=== PATIENT | male | born 1965 | race Caucasian/White ===

== ENCOUNTER 2017-05-25 22:50 | Inpatient (IN) | payer SELFPAY ==
[2017-05-25] MEDS ORDERED: CARDIZEM IV ONE (23:23)
[2017-05-25] MEDS ORDERED: NACL 0.9% 1000 ML 1,000 ML IV ONE (23:25)
--- NOTE | 2017-05-25 23:29 | Emergency Department Report ---
ED Chest Pain HPI - General Stated Complaint: CP Time Seen by Provider: 05/25/17 23:05 - History of Present Illness Initial Comments: 51 yo male who comes in today due to chest pain and palpations. He states that it was much worse in the waiting room but somewhat better in the ED. Denies any past medical history, drug use, new diet pills, or other complaints. Heart rate on ekg is 145. Heart rate in the ED room 103. Patient states that he feels like his heart racing. Complaint: chest pain -: This evening Onset: other (This evening ) Pain Location: substernal Pain Radiation: none Severity: moderate Severity scale (0 -10): 7 Quality: pressure Consistency: constant Improves With: nothing Worsens With: nothing Context: other (none ) Treatments Prior to Arrival: none Aspirin use within the Past 7 Days: (0) No - Related Data On Oral Contraceptives: No Allergies Allergy/AdvReac Type Severity Reaction Status Date / Time No Known Allergies Allergy Verified 05/25/17 23:28 Heart Score - HEART Score History: Moderately suspicious EKG: Non-specific Age: 45-65 Risk factors: No known risk factors Troponin: < normal limit HEART Score: 3 ED Review of Systems ROS: Stated complaint: CP Other details as noted in HPI Constitutional: denies: chills, fever Eyes: denies: eye pain, eye discharge, vision change ENT: denies: ear pain, throat pain Respiratory: shortness of breath Cardiovascular: as per HPI, chest pain, palpitations Endocrine: no symptoms reported Gastrointestinal: denies: abdominal pain, nausea, diarrhea Genitourinary: denies: urgency, dysuria Musculoskeletal: denies: back pain, joint swelling, arthralgia Skin: denies: rash, lesions Neurological: denies: headache, weakness, paresthesias Psychiatric: denies: anxiety, depression ED Past Medical Hx - Past Medical History Previous Medical History?: No ED Physical Exam - General General appearance: anxious - Head Head exam: Present: atraumatic, normocephalic - Eye Eye exam: Present: normal appearance - ENT ENT exam: Present: mucous membranes moist - Neck Neck exam: Present: normal inspection - Respiratory Respiratory exam: Present: normal lung sounds bilaterally. Absent: respiratory distress - Cardiovascular Cardiovascular Exam: Present: tachycardia - GI/Abdominal GI/Abdominal exam: Present: soft, normal bowel sounds - Extremities Exam Extremities exam: Present: normal inspection - Back Exam Back exam: Present: normal inspection - Neurological Exam Neurological exam: Present: alert, oriented X3 - Psychiatric Psychiatric exam: Present: anxious - Skin Skin exam: Present: warm, dry, intact, normal color. Absent: rash ED Course Vital Signs 05/25/17 05/25/17 05/25/17 23:05 23:06 23:15 Temperature 97.8 F Pulse Rate 140 H 164 H 103 H Respiratory 22 25 H 24 Rate Blood Pressure 112/82 115/84 Blood Pressure 112/82 [Right] O2 Sat by Pulse 98 99 Oximetry 05/25/17 05/25/17 05/26/17 23:30 23:45 00:00 Temperature Pulse Rate 103 H 104 H 108 H Respiratory 21 20 15 Rate Blood Pressure 115/80 112/82 110/81 Blood Pressure [Right] O2 Sat by Pulse 99 100 93 Oximetry 05/26/17 05/26/17 05/26/17 00:15 00:26 00:30 Temperature Pulse Rate 110 H 103 H 98 H Respiratory 25 H 15 Rate Blood Pressure 101/70 110/80 103/72 Blood Pressure [Right] O2 Sat by Pulse 91 88 Oximetry 05/26/17 05/26/17 05/26/17 00:45 01:00 01:15 Temperature Pulse Rate 134 H 111 H 108 H Respiratory 40 H 31 H 34 H Rate Blood Pressure 101/70 107/71 102/75 Blood Pressure [Right] O2 Sat by Pulse 83 L 96 89 Oximetry 05/26/17 05/26/17 05/26/17 01:31 01:45 02:00 Temperature Pulse Rate 103 H 93 H 84 Respiratory 17 31 H 30 H Rate Blood Pressure 106/64 64/29 87/45 Blood Pressure [Right] O2 Sat by Pulse 97 100 98 Oximetry 05/26/17 02:15 Temperature Pulse Rate Respiratory 17 Rate Blood Pressure 59/22 Blood Pressure [Right] O2 Sat by Pulse 78 L Oximetry - Reevaluation(s) Reevaluation #1: 05/26/17 01:57 Patient became extremely hypoxic, diaphoretic, and pale. Suspect flash pulmonary edema. Patient intubated with a 7.5 et tube and started on propofol drip. Plan to admit to the hospitalist. - Central Line Placement Right SC Consent Obtained: emergent situation Time Out Performed: Yes Patient Placed on Monitor/Pulse Ox: Yes MD Prep: mask, gown, gloves Central Line Prep: Chlorhexidine scrub Ultrasound Used for Placement: No Central Line Lumen Inserted: triple Bloods Obtained for Lab: Yes Central Line Position: good blood return, all ports aspirated, flus, sutured in place with 2-0 Dressing Applied: Tegaderm, sterile gauze/tape Post Procedure X-Ray: tip of catheter in good p Patient Tolerated Procedure: no complications Complications: none - Intubation Time Out Performed: Yes Sedative: Etomidate Paralytic: Succinylcholine Laryngoscope: Knox Size: 3 ET Tube Size: 7.5 Tube Secured Depth (cm): 22 Tube Secured Location: lips Tube Placement Confirmation: visualized tube passing t, equal breath sounds bilat Patient Tolerated Procedure: well, no complications Intubation Complications: none CHARISMA score - Charisma Score Age > 65: (0) No Aspirin use within the Past 7 Days: (0) No 3 or more CAD Risk Factors: (0) No 2 or more Angina events in past 24 hrs: (0) No Known CAD with more than 50% Stenosis: (0) No Elevated Cardiac Markers: (0) No ST Deviation Greater than 0.5mm: (0) No CHARISMA Score: 0 ED Medical Decision Making - Lab Data Result diagrams: 05/25/17 23:35 05/25/17 23:35 - EKG Data -: EKG Interpreted by Tx EKG shows normal: sinus rhythm (atrial fibrillation ) Rate: tachycardia (145) - EKG Data When compared to previous EKG there are: previous EKG unavailable Interpretation: other (new onset atrial fibrillation ) - Radiology Data Radiology results: report reviewed (Pulmonary edema, pneumonia ) - Medical Decision Making Sepsis Respiratory failure Flash pulmonary edema Community acquired pneumonia - Differential Diagnosis sepsis, flash pulmonary edema, pneumonia, respiratory failure Critical care attestation.: If time is entered above; I have spent that time in minutes in the direct care of this critically ill patient, excluding procedure time. ED Disposition Clinical Impression: Community acquired bacterial pneumonia, Flash pulmonary edema, Sepsis, Respiratory failure Disposition: OP ADMIT IP TO THIS HOSP Is pt being admited?: Yes Does the pt Need Aspirin: No Condition: Critical Instructions: Pulmonary Edema (ED) Referrals: RENATO RENDON MD [Primary Care Provider] - 3-5 Days
--- NOTE | 2017-05-25 23:56 | XRay Report ---
FINAL REPORT PROCEDURE: XR CHEST 1V AP TECHNIQUE: Chest radiograph anteroposterior view. CPT 70490 HISTORY: chest pain COMPARISON: No prior studies are available for comparison. FINDINGS: Heart: Normal. Mediastinum/Vessels: Normal. Lungs/Pleural space: There is suboptimal inspiration. There are no infiltrates, effusions or pneumothoraces. Bony thorax: No acute osseous abnormality. Life support devices: None. IMPRESSION: No acute cardiopulmonary abnormality.
[2017-05-26 00:14] LABS: Basophils # (Auto) 0.1 K/mm3 (0.0-0.1); Basophils % (Auto) 0.5 % (0.0-1.8); Eosinophils # (Auto) 0.1 K/mm3 (0.0-0.4); Eosinophils % (Auto) 0.7 % (0.0-4.3); Hematocrit 50.1 % (35.5-45.6); Hemoglobin 16.7 gm/dl (11.8-15.2); Lymphocytes # (Auto) 3.4 K/mm3 (1.2-5.4); Lymphocytes % (Auto) 19.9 % (13.4-35.0); Mean Corpuscular HGB Conc 33 % (32-34); Mean Corpuscular Hemoglobin 27 pg (28-32); Mean Corpuscular Volume 82 fl (84-94); Monocytes # (Auto) 1.1 K/mm3 (0.0-0.8); Monocytes % (Auto) 6.3 % (0.0-7.3); Red Blood Count 6.11 M/mm3 (3.65-5.03); Red Cell Distribution Width 14.2 % (13.2-15.2)
[2017-05-26] MEDS ORDERED: ASPIRIN ONE (00:15)
[2017-05-26] MEDS ORDERED: ATROVENT IH ONE ×3 (00:15→08:32)
[2017-05-26] MEDS ORDERED: XOPENEX IH ONE ×3 (00:15→08:32)
[2017-05-26 00:16] LABS: Platelet Count 171 K/mm3 (140-440)
[2017-05-26] MEDS ORDERED: NACL 0.9% 1000 ML 1,000 ML IV ONE ×3 (00:18→01:51)
[2017-05-26] MEDS ORDERED: CARDIZEM IV ONE (00:18)
[2017-05-26] MEDS ORDERED: ASPIRIN PO ONE (00:18)
[2017-05-26 00:29] LABS: Creatine Kinase MB 3.4 ng/mL (0.0-4.0)
[2017-05-26 00:31] LABS: Alanine Aminotransferase 22 units/L (7-56); Albumin 4.4 g/dL (3.9-5); BUN/Creatinine Ratio 17; Blood Urea Nitrogen 12 mg/dL (9-20); Calcium 9.3 mg/dL (8.4-10.2); Hemolysis Index 71
[2017-05-26] MEDS ORDERED: ZOFRAN IV ONE (00:42)
[2017-05-26] MEDS ORDERED: ZOFRAN ONE (00:43)
[2017-05-26] MEDS ORDERED: AMIDATE IV ONE ×2 (00:50→00:54)
[2017-05-26] MEDS ORDERED: QUELICIN IV ONE (00:50)
[2017-05-26] MEDS ORDERED: QUELICIN ONE (00:54)
[2017-05-26] MEDS ORDERED: ZEMURON IV ONE (00:54)
[2017-05-26] MEDS ORDERED: VERSED IV ONE ×3 (00:54→12:15)
[2017-05-26] MEDS ORDERED: DIPRIVAN 10 MG/ML 1,000 MG/100 ML BOTTLE IV ONE ×2 (01:08→05:18)
[2017-05-26 01:09] LABS: INR 1.08 (0.87-1.13)
[2017-05-26 01:10] LABS: Partial Thromboplastin Time 25.2 Sec. (24.2-36.6)
--- NOTE | 2017-05-26 01:29 | XRay Report ---
FINAL REPORT EXAM: XR CHEST 1V AP HISTORY: POST INTUBATION TECHNIQUE: A portable supine view of the chest was submitted. Comparison is made to the study 05/25/2017. FINDINGS: Since the previous study the lungs are diffusely congested compatible with pulmonary edema. Superimposed pneumonic infiltrates cannot be excluded. The patient is now intubated with the tip of the ET tube 3 cm above the carmen. The heart size is normal. The bones and soft tissues otherwise are unchanged. IMPRESSION: Status post intubation with the tip of the ET tube 3 cm above the carmen. Interval development of pulmonary edema pattern. Superimposed pneumonic infiltrates cannot be excluded.
[2017-05-26] MEDS ORDERED: LEVOPHED DRIP 4 MG/NS 250 ML 4 MG/250 ML BAG IV ONE (01:47)
[2017-05-26] MEDS ORDERED: DIPRIVAN 10 MG/ML 1,000 MG/100 ML BOTTLE IV SCH (02:00)
[2017-05-26] MEDS ORDERED: VANCOMYCIN/NS 1 GM/250 ML 1 GM/250 ML BAG IV SCH ×2 (02:00→05:00)
[2017-05-26] MEDS ORDERED: LEVOPHED DRIP 4 MG/NS 250 ML 4 MG/250 ML BAG IV SCH (02:00)
[2017-05-26] MEDS ORDERED: VERSED IV NR (02:15)
[2017-05-26] MEDS: fentaNYL DRIP Premix 2,000 MCG/100 ML BAG IV SCH ×2 (03:25→15:19)
[2017-05-26] MEDS ORDERED: TYLENOL PO PRN (04:20)
[2017-05-26] MEDS ORDERED: DULCOLAX PR PRN (04:20)
[2017-05-26] MEDS ORDERED: MILK OF MAGNESIA PO PRN (04:20)
[2017-05-26] MEDS ORDERED: ZOFRAN IV PRN (04:20)
--- NOTE | 2017-05-26 04:24 | History and Physical Report ---
History of Present Illness Date of examination: 05/26/17 History of present illness: Subjective 51-year-old man with no medical problems came to the emergency room for evaluation of shortness of breath. He was found to be in A. fib with RVR and was given Cardizem. Patient was also started on IV fluids, he developed flash pulmonary edema, frothy sputum and his saturation dropped to the 60s. The patient was intubated. His chest x-ray shows pneumonia and he was started on IV antibiotic. His blood pressure also dropped 10 T was started on levophed . Review of system is unobtainable PAST MEDICAL HISTORY:none PAST SURGICAL HISTORY: Unknown FAMILY HISTORY: Unknown SOCIAL HISTORY: Unknown Medications and Allergies Allergies Allergy/AdvReac Type Severity Reaction Status Date / Time No Known Allergies Allergy Verified 05/25/17 23:28 Active Meds: Active Medications Norepinephrine (Levophed Drip 4 Mg/Ns 250 Ml) 4 mg in 250 mls @ 7.5 mls/hr IV TITR MISTY; 2 MCG/MIN PRN Reason: Protocol Piperacillin Sod/Tazobactam Sod (Zosyn/Ns 3.375gm/50ml) 3.375 gm in 50 mls @ 100 mls/hr IV Q6HR MISTY Exam - Physical Exam Narrative exam: Gen. appearance: Patient lying in bed in no acute distress, intubated HEENT: Normocephalic/atraumatic, pupils equal round reactive to light, unable to do extra occular movement no scleral icterus, no JVD or thyromegaly or nodule, neck is supple, mucous membrane moist, no erythema or exudate Heart: S1-S2, regular rate and rhythm Lungs: Crackles bilateral breathing comfortable Abdomen: Positive bowel sounds, nontender, nondistended, no organomegaly Extremities: No edema, cyanosis, clubbing Neuro:: Sedated Skin: No rash, nodules, warm dry - Constitutional Vitals: Temp Pulse Resp BP Pulse Ox 97.8 F 84 17 59/22 78 L 05/25/17 23:05 05/26/17 02:00 05/26/17 02:15 05/26/17 02:15 05/26/17 02:15 Results - Labs CBC & Chem 7: 05/25/17 23:35 05/25/17 23:35 Labs: Abnormal lab results 05/25/17 05/25/1718 Range/Units 23:35 23:35 01:49 WBC 17.0 H (4.5-11.0) K/mm3 RBC 6.11 H (3.65-5.03) M/mm3 Hgb 16.7 H (11.8-15.2) gm/dl Hct 50.1 H (35.5-45.6) % MCV 82 L (84-94) fl MCH 27 L (28-32) pg [place] # 1.1 H (0.0-0.8) K/mm3 Seg Neutrophils % 72.6 H (40.0-70.0) % Seg Neutrophils # 12.3 H (1.8-7.7) K/mm3 POC ABG pH 7.173 L (7.35-7.45) POC ABG pCO2 47.4 H (35-45) Sodium 136 L (137-145) mmol/L Chloride 95.0 L (98-107) mmol/L Creatinine 0.7 L (0.8-1.5) mg/dL Glucose 307 H (75-100) mg/dL - Imaging and Cardiology EKG: image reviewed Chest x-ray: image reviewed Assessment and Plan Assessment Acute respiratory failure Sepsis Community-acquired pneumonia Atrialf fibrillation, resolved Elevated glucose Plan Admit to medicine Continue sedation, levophed drip Continue Zosyn, start Levaquin, vancomycin Follow cultures, check cardiac enzymes, TSH, hemoglobin A1c, echo, consult cardiology Consult Critical care, check fingersticks initiate insulin sliding scale, DVT prophylaxis CT chest is pending
--- NOTE | 2017-05-26 04:39 | Cat Scan Report ---
FINAL REPORT EXAM: CT ANGIO CHEST HISTORY: chest pain, shortness of breath, palpitations TECHNIQUE: A CT angiogram was performed following the intravenous injection of 100 cc of Omnipaque 350. Rotational, sagittal and coronal MIP reconstructions were reviewed. FINDINGS: There is no evidence of pulmonary embolus or aortic dissection. The thoracic aorta is normal in caliber. The heart size is normal. Pericardial fluid is not seen. The lungs appear diffusely congested. There is atelectatic changes and consolidation in both lower lobes. Pleural fluid is not seen. There is an NG tube coursing into the stomach. The adrenal glands appear normal. There is no evidence of adenopathy. The ET tube is in good position above the carmen. At the thoracic inlet the thyroid gland is normal in size. There is a 12 millimeter calcification in the right thyroid lobe. The skeletal structures appear well maintained IMPRESSION: No evidence of pulmonary embolus or aortic dissection. Extensive atelectasis in both lower lobes with consolidation in both lower lobes. How much of this is related to edema and/or pneumonia is uncertain. Satisfactory position of all tubes and lines.
[2017-05-26 05:42] LABS: Bilirubin,Urine NEG (Negative); Blood,Urine NEG (Negative); Color,Urine Yellow (Yellow); Mucus,Urine FEW /HPF; Nitrite,Urine NEG (Negative); Urobilinogen,Urine < 2.0 mg/dL (<2.0); WBC,Urine < 1.0 /HPF (0.0-6.0)
[2017-05-26] MEDS ORDERED: VASELINE LIP THERAPY TP PRN (05:42)
[2017-05-26] MEDS ORDERED: ARTIFICIAL TEARS OPHTH OINT OU PRN (05:42)
[2017-05-26 05:46] LABS: Amphetamine Screen,Urine PRESUMPTIVE NEGATIVE; Benzodiazepines Screen,Urine PRESUMPTIVE NEGATIVE; Cannabinoid Screen,Urine PRESUMPTIVE NEGATIVE; Cocaine Screen,Urine PRESUMPTIVE NEGATIVE; Methadone Screen,Urine PRESUMPTIVE NEGATIVE; Opiate Screen,Urine PRESUMPTIVE NEGATIVE
[2017-05-26] MEDS ORDERED: NOVOLOG SUB-Q ONE (06:01)
[2017-05-26] MEDS ORDERED: D50W (25GM) Syringe IV PRN (06:26)
[2017-05-26] MEDS: LEVAQUIN 750MG/150ML 750 MG/150 ML BAG IV SCH (09:30)
[2017-05-26] MEDS: ZOSYN/NS 3.375GM/50ML 3.375 GM/50 ML BAG IV SCH ×4 (09:30→23:50)
--- NOTE | 2017-05-26 09:41 | Consultation ---
History of Present Illness Consult date: 05/26/17 Requesting physician: JUANPABLO MONTEIRO Consult reason: atrial fibrillation History of present illness: The pt is a 51 YO male with no known significant past medical history. He is previously unknown to our practice. He is intubated on evaluation and thus HPI is obtained per the chart, primary RN and pt's family members at bedside. Pt presented to ED yesterday evening with c/o palpitations. Following arrival, pt was found to be in AFib with RVR, HR 140s-160s. He was given IV cardizem and was initiated on IVF. Pt then developed respiratory distress with frothy sputum and was found to have pulmonary edema on CXR. Chest CTA was negative for PE, showed extensive atelectasis with consolidation in both lower lobes. He was subsequently intubated in ED and was also initiated on levophed gtt for hypotension. On evaluation, pt remains intubated but is alert and responding appropriately to commands. He is noted to be in NSR on telemetry. He remains on levophed gtt. 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 Pt does not smoke, drink, or use illicit drugs. Pt reportedly complained of some fatigue at work yesterday but otherwise has been in his normal state of health until yesterday. Past History Past Medical History: other (gout) Past Surgical History: No surgical history Social history: lives with family. denies: smoking, alcohol abuse, prescription drug abuse Family history: no significant family history Medications and Allergies Allergies Allergy/AdvReac Type Severity Reaction Status Date / Time No Known Allergies Allergy Verified 05/25/17 23:28 Active Meds: Active Medications Acetaminophen (Tylenol) 650 mg PO Q4H PRN PRN Reason: Pain MILD(1-3)/Fever >100.5/TODD Bisacodyl (Dulcolax) 10 mg TX QDAY PRN PRN Reason: Constipation unrelieved by MOM Dextrose (D50w (25gm) Syringe) 50 ml IV PRN PRN PRN Reason: Hypoglycemia Enoxaparin Sodium (Lovenox) 40 mg SUB-Q QDAY MISTY Furosemide (Lasix) 40 mg IV ONCE ONE Stop: 05/26/17 09:03 Hydrophilic Ointment (Vaseline Lip Therapy) 1 applic TP Q2HR PRN PRN Reason: Dry Lips Norepinephrine (Levophed Drip 4 Mg/Ns 250 Ml) 4 mg in 250 mls @ 7.5 mls/hr IV TITR MISTY; 2 MCG/MIN PRN Reason: Protocol Piperacillin Sod/Tazobactam Sod (Zosyn/Ns 3.375gm/50ml) 3.375 gm in 50 mls @ 100 mls/hr IV Q6HR MISTY Levofloxacin/Dextrose (Levaquin 750mg/150ml) 750 mg in 150 mls @ 100 mls/hr IV Q24H MISTY PRN Reason: Protocol Fentanyl Citrate (Fentanyl Drip Premix) 2,000 mcg in 100 mls @ 3.742 mls/hr IV TITR MISTY; 1 MCG/KG/HR PRN Reason: Protocol Propofol (Diprivan 10 Mg/Ml) 1,000 mg in 100 mls @ 2.245 mls/hr IV TITR MISTY; 5 MCG/KG/MIN PRN Reason: Protocol Insulin Aspart (Novolog) 0 units SUB-Q Q6HR MISTY PRN Reason: Protocol Magnesium Hydroxide (Milk Of Magnesia) 30 ml PO Q4H PRN PRN Reason: Constipation Multi-Ingred Cream/Lotion/Oil/Oint (Artificial Tears Ophth Oint) 1 applic OU Q4HR PRN PRN Reason: Dry Eye(s) Ondansetron HCl (Zofran) 4 mg IV Q8H PRN PRN Reason: N/V unrelieved by Reglan Review of Systems ROS unobtainable: due to endotracheal tube Physical Examination Vital Signs Temp Pulse Resp BP Pulse Ox 97 F L 140 H 22 112/82 98 05/25/17 23:05 05/25/17 23:05 05/25/17 23:05 05/25/17 23:05 05/25/17 23:05 General appearance: other (intubated) HEENT: Positive: PERRL, Normocephaly, Mucus Membranes Moist Neck: Positive: neck supple, trachea midline Cardiac: Positive: Reg Rate and Rhythm, S1/S2 Lungs: Positive: Decreased Breath Sounds, Oxygen, Ventilated Respirations Neuro: Positive: Grossly Intact, Other (intubated) Abdomen: Positive: Soft. Negative: Tender Skin: Positive: Clear. Negative: Rash, Wound Musculoskeletal: No Fluid Collection, No Pain, Normal Range of Motion Extremities: Absent: edema Results 05/25/17 23:35 05/25/17 23:35 Cardiac Enzymes 05/25/17 Range/Units 23:35 AST 20 (5-40) units/L CK-MB (CK-2) 3.4 (0.0-4.0) ng/mL Coagulation 05/25/17 Range/Units 23:35 PT 14.6 (12.2-14.9) Sec. INR 1.08 (0.87-1.13) APTT 25.2 (24.2-36.6) Sec. CBC 05/25/17 Range/Units 23:35 WBC 17.0 H (4.5-11.0) K/mm3 RBC 6.11 H (3.65-5.03) M/mm3 Hgb 16.7 H (11.8-15.2) gm/dl Hct 50.1 H (35.5-45.6) % Plt Count 171 (140-440) K/mm3 Lymph # 3.4 (1.2-5.4) K/mm3 [place] # 1.1 H (0.0-0.8) K/mm3 Eos # 0.1 (0.0-0.4) K/mm3 Baso # 0.1 (0.0-0.1) K/mm3 Comprehensive Metabolic Panel 05/25/17 Range/Units 23:35 Sodium 136 L (137-145) mmol/L Potassium 4.7 (3.6-5.0) mmol/L Chloride 95.0 L (98-107) mmol/L Carbon Dioxide 23 (22-30) mmol/L BUN 12 (9-20) mg/dL Creatinine 0.7 L (0.8-1.5) mg/dL Glucose 307 H (75-100) mg/dL Calcium 9.3 (8.4-10.2) mg/dL AST 20 (5-40) units/L ALT 22 (7-56) units/L Alkaline Phosphatase 70 (35-129) units/L Total Protein 7.3 (6.3-8.2) g/dL Albumin 4.4 (3.9-5) g/dL - Imaging and Cardiology Echo: pending EKG: report reviewed, image reviewed EKG interpretations - Telemetry EKG Rhythm: Sinus Rhythm - EKG Supraventricular dysrhythmia: atrial fibrillation Assessment and Plan Assessment: Transient atrial fibrillation with RVR --> SR; suspect new onset; ? precipitated by PNA Acute respiratory failure / pulmonary edema - intubated PNA Hypotension Plan: Obtain echocardiogram. Obtain thyroid profile. Obtain serum Mg. Wean levophed as tolerated for MAP >65mmHg. Consider initiation of amiodarone or digoxin if necessary for HR control while pt remains on levophed. Consider initiation of BB once vasopressors weaned off. No indication for systemic AC in regards to transient AFib at this time. Consider ischemic evaluation once medically stabilized. Assessment and plan reviewed with pt's family at bedside. The patient has been seen in conjunction with Dr. Ram who agrees with the assessment and plan of care.
[2017-05-26] MEDS ORDERED: LOVENOX SUB-Q SCH (10:00)
[2017-05-26] MEDS ORDERED: LASIX IV NR (10:00)
[2017-05-26] MEDS ORDERED: HEPARIN 10,000 UNITS/10 ML IV ONE (11:00)
[2017-05-26 11:16] LABS: Chol/HDL Ratio 6.76 %
[2017-05-26] MEDS ORDERED: HEPARIN ONE (11:21)
[2017-05-26] MEDS ORDERED: HEPARIN IV ONE (11:24)
[2017-05-26] MEDS: PEPCID IV SCH ×2 (11:25→21:50)
[2017-05-26] MEDS ORDERED: HEPARIN/NS 5000 UNIT/500ML(CATH LAB) 1,000 ML IR ONE (11:31)
[2017-05-26] MEDS ORDERED: NACL 0.9% 500 ML 500 ML ONE (11:38)
--- NOTE | 2017-05-26 11:54 | Event Note ---
Date: 05/26/17 Pt's repeat troponin noted to be 1.310. Repeat EKG shows SR with ST elevations in anteroseptal leads. Code STEMI activated and pt taken to cath lab technologist for emergent coronary angiography. Farrah KUMAR NP / DR. MO
[2017-05-26] MEDS ORDERED: NACL 0.9% 1000 ML 1,000 ML ONE (12:06)
[2017-05-26] MEDS ORDERED: HEPARIN/ 0.45% NACL-25,000 UNIT/500 ML 25,000 UNIT/500 ML BAG ONE (12:07)
[2017-05-26] MEDS ORDERED: HEPARIN/NS 5000 UNIT/500ML(CATH LAB) 500 ML IR ONE (12:14)
[2017-05-26] MEDS ORDERED: SUBLIMAZE IV ONE (12:15)
[2017-05-26] MEDS ORDERED: XYLOCAINE 2% INFILTRATI ONE (12:15)
[2017-05-26] MEDS: HEPARIN/ 0.45% NACL-25,000 UNIT/500 ML 25,000 UNIT/500 ML BAG IV SCH (12:30)
[2017-05-26] MEDS: INTROPIN DRIP 800 MG/D5W 250 ML 800 MG/250 ML BAG IV SCH (12:43)
--- NOTE | 2017-05-26 14:28 | Discharge Summary ---
Providers - Providers Date of Admission: 05/26/17 04:20 Attending physician: SCARLETT MORAN MD 05/26/17 04:20 Consult to Physician [CONS] Routine Consulting Provider: WILLA ARREGUIN Reason For Exam: cc Place consult to:: dinora Notified:: y Was contact made?: Yes If yes, spoke with:: pb Consult to Physician [CONS] Routine Consulting Provider: LIZY ASHFORD Reason For Exam: new afib Place consult to:: CARDIO Notified:: Y If yes, spoke with:: Franklin KUMAR Time called:: 09:05 05/26/17 13:05 Consult to Cardiac Rehabilitation [CONS] Routine Reason For Exam: Cardiac Rehab Evaluation Primary care physician: RENATO RENDON Hospitalization Reason for admission: stemi Condition: Critical Hospital course: The pt is a 51 YO male with no known significant past medical history. presented to the ED with shortness of breath and palpitation, was found to have Afib with rvr with HR 140-160s, Started on Cardizem and fluids for sepsis secondary to pneumonia, developed flash pulmonary edema with frothy sputum and hypoxic in the 60s, requiring intubation for ventilation. Patient was temporaly placed on dopamin Chest CTA was negative for PE, showed extensive atelectasis with consolidation in both lower lobes. He was subsequently intubated in ED and was also initiated on levophed gtt for hypotension. while initial Troponin was negative a repeat came back elevated and a stat repeat EKG was concerning. Repeat EKG shows SR with ST elevations in anteroseptal leads. Cardiac cath showed Tripple vessels disease with EF of 15%. [facility] was contacted due to delaying bed availability patient was held overnight and managed in ICU continued on heparin drip. Family was updated. Today a bed became available and patient is being transferred Discharge diagnosis STEMI Sepsis cardiogenic shock Transient atrial fibrillation with RVR --> SR; suspect new onset; ? precipitated by PNA Acute respiratory failure / pulmonary edema - intubated PNA Hypotension Disposition: DC/[facility]-70 ANOTHER TYPE [facility] Time spent for discharge: 45 mins Core Measure Documentation - Palliative Care Palliative Care/ Comfort Measures: Not Applicable - Core Measures Any of the following diagnoses?: heart failure, none - VTE Discharge Requirements Deep Vein Thrombosis/Pulmonary Embolism Present on Admission: No - Heart Failure Discharge Requirements ELPIDIO/ARB for LVSD if EF <40%: Not Applicable Reason for no ELPIDIO/ARB: Medical contraindication Beta [place] at discharge: No Reason for no beta dakota on DC: Medical contraindication Exam - Constitutional Vitals: Temp Pulse Resp BP Pulse Ox 97.9 F 90 15 112/44 99 05/26/17 14:03 05/26/17 14:03 05/26/17 14:03 05/26/17 14:03 05/26/17 14:03 General appearance: Present: mild distress, well-nourished - EENT Eyes: Present: PERRL, EOM intact ENT: hearing intact, clear oral mucosa, dentition normal - Neck Neck: Present: supple, normal ROM - Respiratory Respiratory effort: other (intubated) Respiratory: bilateral: rhonchi - Cardiovascular Rhythm: irregularly irregular Heart Sounds: Absent: systolic murmur, diastolic murmur - Extremities Extremities: no ischemia, pulses intact Peripheral Pulses: within normal limits - Abdominal General gastrointestinal: Present: soft, non-tender, non-distended - Integumentary Integumentary: Present: clear, warm, dry - Musculoskeletal Musculoskeletal: strength equal bilaterally - Psychiatric Psychiatric: appropriate mood/affect - Allied Health Allied health notes reviewed: nursing Plan Activity: advance as tolerated Follow up with: RENATO RENDON MD [Primary Care Provider] - 3-5 Days
--- NOTE | 2017-05-26 14:44 | Event Note ---
Date: 05/26/17 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 IABP inserted. Dopamine gtt initiated. Pt to tx to [place] for possible CABG. Farrah KUMAR NP / DR. MO
[2017-05-26 14:47] LABS: Hematocrit 48.9 % (35.5-45.6)
--- NOTE | 2017-05-26 15:03 | Cardiac Catherization Report ---
The patient is a 51-year-old gentleman with no significant previous history, presented to the Emergency Room with atrial fibrillation with rapid ventricular response along with evidence of bilateral infiltrates consistent with pneumonia versus acute flash pulmonary edema. The patient was intubated, apparently had a CT scan of the chest performed. There is no evidence of pulmonary embolus. Because of some complaint of chest pain along with abnormal EKG, the patient was brought to the catheterization laboratory on an emergency basis as a part of the STEMI protocol. The patient's family included brother and stepsister. According to them, the patient did not have any significant history prior to this and is doing reasonably well. The patient was brought to catheterization laboratory on an emergency basis. He is already intubated in sinus rhythm. Blood pressure is 90 systolic. He was prepared in the catheterization laboratory in a standard fashion. Local anesthesia was given in the right groin area and right femoral artery puncture was made using 5-Guyanese micropuncture needle. A 6-Guyanese sheath was introduced. Using multipurpose catheter, angiogram of the left ventricle was performed in GRAY projection followed by angiograms of the left coronary artery in multiple views. Subsequently, JR4 catheter was used to obtain the angiograms of the right coronary artery. At the end of the procedure, it was decided to insert intraaortic balloon. It was felt that the patient would benefit from intraaortic balloon pump insertion. The patient has indwelling 6-Guyanese sheath in place. This was exchanged to balloon pump sheath and 50 mL sensation plus 8-Guyanese balloon pump was inserted in a standard fashion under fluoroscopy in appropriate position from the upper chest to upper part of the abdomen with good inflation and deflation. No untoward complications were noted. Balloon pump was sutured to the groin. Balloon pump was functioning well 1:1 without any problems. Following findings were noted: HEMODYNAMICS: 1. Opening aortic pressure 92/45, left ventricular pressure 95/19, no gradient across the aortic valve. Left ventricle is dilated moderately. Severe diffuse hypokinesis noted, ejection fraction 20-25%. Distal two-thirds of the ventricle appears to be almost akinetic. Right coronary artery dominant vessel arises normally from right coronary cusp is occluded in the proximal part. Right ventricular branches are collateralizing the LAD. Also, there is late filling of the PDA on RCA injection. 2. Left coronary artery shows left main to be along with severe distal lesion 90% or so. LAD appears to be occluded in the proximal part. Ramus shows significant proximal lesion, but fairly large vessel bypassable. Similarly, circumflex artery shows significant proximal lesion with bypassable marginal branches. Collaterals were noted to the LAD and RCA injection. Also, distal RCA is filling and RCA injection. FINAL IMPRESSION: Severe LV dysfunction with severe triple vessel disease including distal left main and occluded RCA. Considering overall clinical picture and angiographic anatomy, it was felt that the patient would benefit with revascularization probably on an emergency basis. Discussed with the patient's family members and also Dr. Reina who agreed for the transfer. The patient will be transferred to [facility] when bed is available. At the end of the procedure, the patient is in sinus rhythm with stable hemodynamics. The patient is intubated and sedated. Blood pressure 90/60, in sinus rhythm. JOB# [id number] RONNELL/MERLE MENDOZA
[2017-05-26 15:04] LABS: INR 1.05 (0.87-1.13); Partial Thromboplastin Time 55.7 Sec. (24.2-36.6)
[2017-05-26] MEDS ORDERED: NACL 0.9% 1000 ML 1,000 ML IV SCH (16:00)
[2017-05-26] MEDS: NOVOLOG SUB-Q SCH (16:08)
[2017-05-26 17:06] LABS: Creatine Kinase MB 151.3 ng/mL (0.0-4.0)
[2017-05-26] MEDS ORDERED: PEPCID IV ONE (21:48)
--- NOTE | 2017-05-26 23:23 | Event Note ---
Date: 05/26/17 Patient seen and examined, discussed with cardiology, emergent revealing mutiple vessel disease. Recommended to transfer to [facility] consult and transfer protocol has been placed we'll continue current management.
[2017-05-27] MEDS ORDERED: NOVOLOG SUB-Q ONE (00:11)
[2017-05-27] MEDS: NOVOLOG SUB-Q SCH ×6 (00:14→17:21)
[2017-05-27 01:22] LABS: Hematocrit 47.3 % (35.5-45.6); Hemoglobin 16.1 gm/dl (11.8-15.2); Mean Corpuscular HGB Conc 34 % (32-34); Mean Corpuscular Hemoglobin 28 pg (28-32); Mean Corpuscular Volume 82 fl (84-94); Red Blood Count 5.75 M/mm3 (3.65-5.03); Red Cell Distribution Width 13.9 % (13.2-15.2)
[2017-05-27 01:27] LABS: Platelet Count 165 K/mm3 (140-440)
[2017-05-27] MEDS: fentaNYL DRIP Premix 2,000 MCG/100 ML BAG IV SCH ×2 (05:03→11:36)
[2017-05-27] MEDS: ZOSYN/NS 3.375GM/50ML 3.375 GM/50 ML BAG IV SCH ×3 (05:10→17:20)
[2017-05-27 05:18] LABS: Band Neutrophils # (Manual) 1.3 K/mm3; Basophils % (Manual) 0 % (0.0-1.8); Eosinophils % (Manual) 0 % (0.0-4.3); Total Cells Counted 100
[2017-05-27 05:19] LABS: Anisocytosis 1+; Toxic Vacuolation Few
[2017-05-27] MEDS: INTROPIN DRIP 800 MG/D5W 250 ML 800 MG/250 ML BAG IV SCH (05:32)
[2017-05-27 06:45] LABS: BUN/Creatinine Ratio 17; Blood Urea Nitrogen 10 mg/dL (9-20); Calcium 7.7 mg/dL (8.4-10.2); Hemolysis Index 1
[2017-05-27] MEDS: LEVAQUIN 750MG/150ML 750 MG/150 ML BAG IV SCH (08:40)
[2017-05-27] MEDS: PEPCID IV SCH (09:31)
--- NOTE | 2017-05-27 09:42 | Progress Note ---
Assessment and Plan Assessment: S/p acute STEMI Triple vessel CAD Acute systolic heart failure / cardiogenic shock - IABP in situ Ischemic cardiomyopathy - EF 15% Transient atrial fibrillation with RVR --> SR Acute respiratory failure / pulmonary edema - intubated PNA Hyperglycemia Hypotension Plan: Continue supportive management. Await transfer to [place] once bed is available. Assessment and plan reviewed with pt's family at bedside. The patient has been seen in conjunction with Dr. Cabral who agrees with the assessment and plan of care. Subjective Date of service: 05/27/17 Principal diagnosis: STEMI Interval history: Pt remains intubated, on IABP 1:1 100% augmentation, on dopamine and heparin gtts. VSS. Family at bedside. Objective Last Vital Signs Temp 99.0 F 05/27/17 08:00 Pulse 86 05/27/17 09:00 Resp 22 05/27/17 09:00 BP 122/57 05/27/17 09:00 Pulse Ox 100 05/27/17 09:00 - Physical Examination General: Other (sedated) HEENT: Positive: PERRL, Normocephaly, Mucus Membranes Moist Neck: Positive: neck supple, trachea midline Cardiac: Positive: Reg Rate and Rhythm, S1/S2 Lungs: Positive: Decreased Breath Sounds, Ventilated Respirations Neuro: Positive: Other (sedated) Abdomen: Positive: Soft. Negative: Tender Skin: Positive: Clear. Negative: Rash, Wound Incision: Cardiac Cath Site (IABP in place via right groin, c/d/i with no evidence of bleeding or hematoma) Musculoskeletal: No Fluid Collection, No Pain, Normal Range of Motion Extremities: Present: upper extr. pulses, lower extr. pulses. Absent: edema - Labs and Meds Cardiac Enzymes 05/26/17 05/26/17 Range/Units 10:22 16:17 CK-MB (CK-2) 117.0 H 151.3 H (0.0-4.0) ng/mL Coagulation 05/26/17 Range/Units 14:39 PT 14.2 (12.2-14.9) Sec. INR 1.05 (0.87-1.13) APTT 55.7 H (24.2-36.6) Sec. Lipids 05/26/17 Range/Units 10:11 Triglycerides 272 H (2-149) mg/dL Cholesterol 203 H (50-199) mg/dL HDL Cholesterol 30 L (40-59) mg/dL Cholesterol/HDL Ratio 6.76 % CBC 05/26/17 05/27/17 Range/Units 14:39 00:47 WBC 20.9 H (4.5-11.0) K/mm3 RBC 5.75 H (3.65-5.03) M/mm3 Hgb 16.0 H 16.1 H (11.8-15.2) gm/dl Hct 48.9 H 47.3 H (35.5-45.6) % Plt Count 181 165 (140-440) K/mm3 Comprehensive Metabolic Panel 05/27/17 Range/Units 04:30 Sodium 142 (137-145) mmol/L Potassium 3.8 (3.6-5.0) mmol/L Chloride 102.9 (98-107) mmol/L Carbon Dioxide 26 (22-30) mmol/L BUN 10 (9-20) mg/dL Creatinine 0.6 L (0.8-1.5) mg/dL Glucose 219 H (75-100) mg/dL Calcium 7.7 L D (8.4-10.2) mg/dL - Imaging and Cardiology EKG: report reviewed, image reviewed - Telemetry EKG Rhythm: Sinus Rhythm
--- NOTE | 2017-05-27 09:49 | Consultation ---
History of Present Illness Consult date: 05/27/17 Requesting physician: JUANPABLO MONTEIRO Reason for consult: other (Atrial Fib with RVR; Decompensated HFrEF on IABP) History of present illness: PULMONARY/CCM CONSULT NOTE (Full dictation # [id number]) Please see dictated notes for full details Past History Past Medical History: other (gout) Past Surgical History: No surgical history Social history: lives with family. denies: smoking, alcohol abuse, prescription drug abuse Family history: no significant family history Medications and Allergies Allergies Allergy/AdvReac Type Severity Reaction Status Date / Time No Known Allergies Allergy Verified 05/25/17 23:28 Home Medications Medication Instructions Recorded Confirmed Last Taken Type No Known Home Medications [No 05/27/17 05/27/17 Unknown History Reported Home Medications] Active Meds: Active Medications Acetaminophen (Tylenol) 650 mg PO Q4H PRN PRN Reason: Pain MILD(1-3)/Fever >100.5/TODD Bisacodyl (Dulcolax) 10 mg IN QDAY PRN PRN Reason: Constipation unrelieved by MOM Dextrose (D50w (25gm) Syringe) 50 ml IV PRN PRN PRN Reason: Hypoglycemia Famotidine (Pepcid) 20 mg IV BID MISTY Last Admin: 05/27/17 09:31 Dose: 20 mg Hydrophilic Ointment (Vaseline Lip Therapy) 1 applic TP Q2HR PRN PRN Reason: Dry Lips Norepinephrine (Levophed Drip 4 Mg/Ns 250 Ml) 4 mg in 250 mls @ 7.5 mls/hr IV TITR MISTY; 2 MCG/MIN PRN Reason: Protocol Last Titration: 05/26/17 06:15 Dose: 6 mcg/min, 22.5 mls/hr Piperacillin Sod/Tazobactam Sod (Zosyn/Ns 3.375gm/50ml) 3.375 gm in 50 mls @ 100 mls/hr IV Q6HR MISTY Last Admin: 05/27/17 05:10 Dose: 100 mls/hr Levofloxacin/Dextrose (Levaquin 750mg/150ml) 750 mg in 150 mls @ 100 mls/hr IV Q24H MISTY PRN Reason: Protocol Last Admin: 05/27/17 08:40 Dose: 100 mls/hr Fentanyl Citrate (Fentanyl Drip Premix) 2,000 mcg in 100 mls @ 3.742 mls/hr IV TITR MISTY; 1 MCG/KG/HR PRN Reason: Protocol Last Admin: 05/27/17 05:03 Dose: 2.016 mcg/kg/hr, 7.544 mls/hr Propofol (Diprivan 10 Mg/Ml) 1,000 mg in 100 mls @ 2.245 mls/hr IV TITR MISTY; 5 MCG/KG/MIN PRN Reason: Protocol Last Titration: 05/26/17 08:29 Dose: Infused Heparin Sodium/Sodium Chloride (Heparin/ 0.45% Nacl-25,000 Unit/500 Ml) 25,000 unit in 500 mls @ 20 mls/hr IV TITRATE MISTY; 1,000 UNITS/HR PRN Reason: Protocol Last Titration: 05/27/17 05:27 Dose: 1,100 units/hr, 22 mls/hr Dopamine HCl/Dextrose (Intropin Drip 800 Mg/D5w 250 Ml) 800 mg in 250 mls @ 2.807 mls/hr IV TITR MISTY; 2 MCG/KG/MIN PRN Reason: Protocol Last Admin: 05/27/17 05:32 Dose: 10 mcg/kg/min, 14.033 mls/hr Sodium Chloride (Nacl 0.9% 1000 Ml) 1,000 mls @ 50 mls/hr IV DIRECT MISTY Stop: 05/27/17 11:59 Last Admin: 05/26/17 15:40 Dose: 50 mls/hr Insulin Aspart (Novolog) 0 units SUB-Q Q6HR MISTY PRN Reason: Protocol Last Admin: 05/27/17 08:52 Dose: Not Given Magnesium Hydroxide (Milk Of Magnesia) 30 ml PO Q4H PRN PRN Reason: Constipation Multi-Ingred Cream/Lotion/Oil/Oint (Artificial Tears Ophth Oint) 1 applic OU Q4HR PRN PRN Reason: Dry Eye(s) Ondansetron HCl (Zofran) 4 mg IV Q8H PRN PRN Reason: N/V unrelieved by Reglan Physical Examination Vital signs: Vital Signs Temp Pulse Resp BP Pulse Ox 97 F L 140 H 22 112/82 98 05/25/17 23:05 05/25/17 23:05 05/25/17 23:05 05/25/17 23:05 05/25/17 23:05 Results - Laboratory Findings CBC and BMP: 05/27/17 00:47 05/27/17 04:30 ABG POC ABG pH 7.349 (7.35-7.45) L 05/27/17 06:29 POC ABG pCO2 49.0 (35-45) H 05/27/17 06:29 POC ABG pO2 163 (80-105) H 05/27/17 06:29 POC ABG HCO3 27.0 05/27/17 06:29 POC ABG Total CO2 28 05/27/17 06:29 POC ABG O2 Sat 99 05/27/17 06:29 PT/INR, D-dimer PT 14.2 Sec. (12.2-14.9) 05/26/17 14:39 INR 1.05 (0.87-1.13) 05/26/17 14:39 Abnormal lab findings: Abnormal Labs 05/25/17 05/25/17 05/26/17 23:35 23:35 01:49 WBC 17.0 H RBC 6.11 H Hgb 16.7 H Hct 50.1 H MCV 82 L MCH 27 L [place] # 1.1 H Seg Neutrophils % 72.6 H Lymphocytes % (Manual) Monocytes % (Manual) Seg Neutrophils # 12.3 H Seg Neutrophils # Man Monocytes # (Manual) APTT Heparin Anti-Xa Level POC ABG pH 7.173 L POC ABG pCO2 47.4 H POC ABG pO2 Sodium 136 L Chloride 95.0 L Creatinine 0.7 L Glucose 307 H POC Glucose Hemoglobin A1c Lactic Acid Calcium Total Creatine Kinase CK-MB (CK-2) CK-MB (CK-2) Rel Index Troponin T Triglycerides Cholesterol HDL Cholesterol Ur Specific [place] 05/26/17 05/26/17 05/26/17 04:30 04:54 05:11 WBC RBC Hgb Hct MCV MCH [place] # Seg Neutrophils % Lymphocytes % (Manual) Monocytes % (Manual) Seg Neutrophils # Seg Neutrophils # Man Monocytes # (Manual) APTT Heparin Anti-Xa Level POC ABG pH 7.276 L POC ABG pCO2 48.3 H POC ABG pO2 157 H Sodium Chloride Creatinine Glucose POC Glucose Hemoglobin A1c 10.2 H Lactic Acid Calcium Total Creatine Kinase CK-MB (CK-2) CK-MB (CK-2) Rel Index Troponin T Triglycerides Cholesterol HDL Cholesterol Ur Specific [place] 1.036 H 05/26/17 05/26/17 05/26/17 08:22 10:11 10:22 WBC RBC Hgb Hct MCV MCH [place] # Seg Neutrophils % Lymphocytes % (Manual) Monocytes % (Manual) Seg Neutrophils # Seg Neutrophils # Man Monocytes # (Manual) APTT Heparin Anti-Xa Level POC ABG pH POC ABG pCO2 POC ABG pO2 Sodium Chloride Creatinine Glucose POC Glucose 280 H Hemoglobin A1c Lactic Acid Calcium Total Creatine Kinase 1352 H CK-MB (CK-2) 117.0 H CK-MB (CK-2) Rel Index 8.6 H Troponin T 1.310 H* D Triglycerides 272 H Cholesterol 203 H HDL Cholesterol 30 L Ur Specific [place] 05/26/17 05/26/17 05/26/17 14:39 14:39 16:08 WBC RBC Hgb 16.0 H Hct 48.9 H MCV MCH [place] # Seg Neutrophils % Lymphocytes % (Manual) Monocytes % (Manual) Seg Neutrophils # Seg Neutrophils # Man Monocytes # (Manual) APTT 55.7 H Heparin Anti-Xa Level POC ABG pH POC ABG pCO2 POC ABG pO2 Sodium Chloride Creatinine Glucose POC Glucose 224 H Hemoglobin A1c Lactic Acid Calcium Total Creatine Kinase CK-MB (CK-2) CK-MB (CK-2) Rel Index Troponin T Triglycerides Cholesterol HDL Cholesterol Ur Specific [place] 05/26/17 05/26/17 05/26/17 16:17 16:17 19:43 WBC RBC Hgb Hct MCV MCH [place] # Seg Neutrophils % Lymphocytes % (Manual) Monocytes % (Manual) Seg Neutrophils # Seg Neutrophils # Man Monocytes # (Manual) APTT Heparin Anti-Xa Level 0.25 L POC ABG pH POC ABG pCO2 POC ABG pO2 Sodium Chloride Creatinine Glucose POC Glucose Hemoglobin A1c Lactic Acid 2.80 H* Calcium Total Creatine Kinase 1653 H CK-MB (CK-2) 151.3 H CK-MB (CK-2) Rel Index 9.1 H Troponin T 2.920 H* D Triglycerides Cholesterol HDL Cholesterol Ur Specific [place] 05/26/17 05/27/17 05/27/17 23:57 00:47 00:47 WBC 20.9 H RBC 5.75 H Hgb 16.1 H Hct 47.3 H MCV 82 L MCH [place] # Seg Neutrophils % Lymphocytes % (Manual) 11.0 L Monocytes % (Manual) 16.0 H Seg Neutrophils # Seg Neutrophils # Man 13.8 H Monocytes # (Manual) 3.3 H APTT Heparin Anti-Xa Level 0.17 L POC ABG pH POC ABG pCO2 POC ABG pO2 Sodium Chloride Creatinine Glucose POC Glucose 195 H Hemoglobin A1c Lactic Acid Calcium Total Creatine Kinase CK-MB (CK-2) CK-MB (CK-2) Rel Index Troponin T Triglycerides Cholesterol HDL Cholesterol Ur Specific [place] 05/27/17 05/27/17 05/27/17 04:30 04:30 05:34 WBC RBC Hgb Hct MCV MCH [place] # Seg Neutrophils % Lymphocytes % (Manual) Monocytes % (Manual) Seg Neutrophils # Seg Neutrophils # Man Monocytes # (Manual) APTT Heparin Anti-Xa Level 0.23 L POC ABG pH POC ABG pCO2 POC ABG pO2 Sodium Chloride Creatinine 0.6 L Glucose 219 H POC Glucose 224 H Hemoglobin A1c Lactic Acid Calcium 7.7 L D Total Creatine Kinase CK-MB (CK-2) CK-MB (CK-2) Rel Index Troponin T Triglycerides Cholesterol HDL Cholesterol Ur Specific [place] 05/27/17 06:29 WBC RBC Hgb Hct MCV MCH [place] # Seg Neutrophils % Lymphocytes % (Manual) Monocytes % (Manual) Seg Neutrophils # Seg Neutrophils # Man Monocytes # (Manual) APTT Heparin Anti-Xa Level POC ABG pH 7.349 L POC ABG pCO2 49.0 H POC ABG pO2 163 H Sodium Chloride Creatinine Glucose POC Glucose Hemoglobin A1c Lactic Acid Calcium Total Creatine Kinase CK-MB (CK-2) CK-MB (CK-2) Rel Index Troponin T Triglycerides Cholesterol HDL Cholesterol Ur Specific [place]
[2017-05-27 09:51] LABS: Creatine Kinase MB 30.5 ng/mL (0.0-4.0)
--- NOTE | 2017-05-27 11:15 | XRay Report ---
AP CHEST: HISTORY: Pulmonary edema, respiratory failure Lines and support devices are in good position. Bilateral pulmonary edema has nearly resolved since 05/26/17. The lungs are generally clear. No large pleural effusion or pneumothorax. Heart and mediastinal structures are within normal limits. IMPRESSION: Near normal chest x-ray. Bilateral pulmonary edema has nearly resolved since yesterday's exam.
[2017-05-27] MEDS: HEPARIN/ 0.45% NACL-25,000 UNIT/500 ML 25,000 UNIT/500 ML BAG IV SCH (12:39)
[2017-05-27] MEDS ORDERED: HEPARIN 1,000 UNIT in NACL 0.9% 500 ML 500 ML IV SCH (16:15)
[2017-05-27 19:06] VITALS: BP 120/60
--- NOTE | 2017-05-29 08:40 | Consultation ---
PULMONARY AND CRITICAL CARE EVALUATION CONSULTING PHYSICIAN: Jazmín Steiner MD REASON FOR CONSULTATION: Critical care, acute coronary syndrome requiring intraaortic balloon pump. CHIEF COMPLAINT AND HISTORY OF PRESENT ILLNESS: The patient is a 51-year-old whose male with past medical history is unknown, who presented to the Emergency Room complaining of palpitations. He was found to be in atrial fibrillation with a rapid ventricular response. IV fluids were started, Cardizem drip was started. Venous thromboembolic disorder workup was negative. He required intubation in the Emergency Room and Levophed to keep his blood pressure up. He had denied tobacco use or abuse or illicit drug use or abuse whatsoever. Further evaluation and EKGs revealed anteroseptal ST elevations. The patient was taken to the pathology laboratory aide. The left heart catheterization showed coronary artery disease, triple-vessel disease, ejection fraction of 15%. Intraaortic balloon pump was inserted. He was started on a dopamine drip and brought in to the Intensive Care Unit where I stopped by to see him. When I stopped by to see him, he was resting in bed. He was on supplemental oxygen. Denied any chest pain. Denied any nausea, vomiting, fevers or chills. That really is as much of the history of presentation as I have. PAST MEDICAL HISTORY: Unknown. PAST SURGICAL HISTORY: Unknown. MEDICATIONS: He was on at the time I stopped by to see him were reviewed and pertinent medications included dopamine, being titrated to keep MAPs greater than or equal to above 60%. He was on Pepcid 20 mg IV b.i.d., IV heparin drip was going at the time I saw him. ACS protocol, insulin via sliding scale, Levaquin 750 mg IV daily. He had been weaned off the Levophed drip and had also received Zosyn 3.375 g IV q.6h. ALLERGIES: Unknown. DIET: Well-built gentleman. Denied significant weight loss or gain in the preceding few weeks to months. FAMILY AND SOCIAL HISTORY: Lived in the community. There was a family member in the room, had denied alcohol, tobacco, or illicit drug use or abuse. REVIEW OF SYSTEMS: Complete 13-system review of systems obtained. Pertinent positives and/or negatives as in body of history above, otherwise noncontributory. Of note, palpitations were new. He denied any new onset leg pain or swelling, either unilaterally or bilaterally or any hemoptysis or any suggestion of venous thromboembolic phenomenon. PHYSICAL EXAMINATION: VITAL SIGNS: At presentation in the Emergency Room, he was afebrile, temperature 97 degrees Fahrenheit with a pulse of 140, respiratory rate of 22, blood pressure 112/82, oxygen sats were 98%, inspired oxygen concentration was not recorded. GENERAL: Well-built male lying in bed. Normocephalic, atraumatic, talking to me in full sentences, but worst mild respiratory distress. HEAD, EYES, EARS, NOSE AND THROAT: He was anicteric, no conjunctival erythema. Oropharynx was moist. No jugular venous distention, no thyromegaly, no palpable lymph nodes in the supraclavicular or submandibular lymph node chains. LUNGS: Auscultation of both lung spencer, faint inspiratory rales in the bases bilaterally. No wheezing. HEART: Heart sounds 1 and 2 are heard, regular rate and rhythm. At the time of my evaluation, no rubs, no murmurs. The intraaortic balloon pump click was audible on auscultation. ABDOMEN: Soft, full, bowel sounds are positive, nontender. EXTREMITIES: Without overt digital clubbing, cyanosis, or pedal edema. Intraaortic balloon pump insertion site was in the left lower extremity. Dorsalis pedis pulses were palpable bilaterally. SKIN: Normal turgor. No cellulitis, no rash. NEUROLOGIC: The pupils were equal, round, reactive to light and accommodation. Extraocular muscle movements were intact. He moved all 4 extremities spontaneously. LABORATORY DATA: From my review, admission white cell count was 17,000 with a hemoglobin of 16.7, hematocrit of 50.1, and platelet count of 171. No band forms. INR 1.08. Arterial blood gas at presentation, pH 7.17, pCO2 of 47, pO2 of 92 that was on 100% FiO2, delivery method was not reported. Serum sodium was 136, potassium 4.7, chloride 95, bicarbonate 23, BUN 12, creatinine 0.7, glucose 307. Troponin was within normal limits at presentation and it peaked at 2.24. Arterial blood gas at the time of my evaluation showed a pH of 7.35, pCO2 of 49, pO2 of 163 that was on 50% FiO2. Urine drug screen was negative. Urinalysis was unremarkable. He was spilling glucose in his urine, otherwise unremarkable. Blood cultures no growth to date. Chest x-ray was done at admission, I have reviewed the chest x-ray as well as the radiologist's interpretation and essentially it was an unremarkable chest x-ray except it was a lordotic film, hypoventilation. Otherwise, no focal infiltrates that I can see. A repeat chest x-ray at the time of my evaluation does show bilateral increase in interstitial infiltrates. The patient was intubated. ET tube tip around the level of the aortic knob. He has a right subclavian central line with the tip in the distal SVC. No pleural effusions, no gross pneumothorax, no gross bony fracture. A CT angiogram of his chest was also done. I have reviewed the CT angiogram, no gross filling defects consistent with pulmonary emboli. He has dense consolidation, mostly in the dependent regions of his lungs. Cannot rule out pneumonia. He does have ground glass opacifications though and I think the picture is more consistent with pulmonary edema and atelectasis. There are some air bronchograms in the basilar regions though and that could be consistent with an infectious process. There was motion artifact also. ASSESSMENT AND PLAN: 1. Acute hypoxemic respiratory failure, on mechanical ventilator support. 2. Acute congestive heart failure exacerbation. 3. New onset atrial fibrillation, if the history is to be correct. 4. Acute ST elevation myocardial infarction. 5. Decompensated congestive heart failure with intraaortic balloon pump support. 6. Coronary artery disease, triple-vessel disease. PLAN: He will be maintained on mechanical ventilatory support, intraaortic balloon pump will be kept in place. It is on a one-to-one set and at this point, he will require coronary artery bypass grafting. The plan is to transfer him to the [facility] system as soon as a bed is available. We will continue to wean oxygen to keep sats greater than or equal to about 90%. Aspiration precautions and ventilator-associated pneumonia bundles will be addressed daily. He is appropriately on GI prophylaxis. He is fully anticoagulated. Flu and pneumonia vaccination will be per protocol. Thank you very much for the consult. We will follow along and make further recommendations as picture progresses/becomes clearer. JOB# [id number] YURIDIA/MERLE
== END 2017-05-27 18:32 | disposition short-term general hospital (02) | DRG 853 ==
LOC: ED 22:50 → CC1 05-26 04:20
PROVIDERS: ADMIT Internal Medicine; ATTEND Internal Medicine
PROC: 5A02210 Assistance with Cardiac Output using Balloon Pump, Continuous (ICD-10-PCS; principal; 2017-05-26)
PROC: 02HV33Z Insertion of Infusion Device into Superior Vena Cava, Percutaneous Approach (ICD-10-PCS; 2017-05-26)
PROC: 4A023N7 Measurement of Cardiac Sampling and Pressure, Left Heart, Percutaneous Approach (ICD-10-PCS; 2017-05-26)
PROC: B2111ZZ Fluoroscopy of Multiple Coronary Arteries using Low Osmolar Contrast (ICD-10-PCS; 2017-05-26)
PROC: B2151ZZ Fluoroscopy of Left Heart using Low Osmolar Contrast (ICD-10-PCS; 2017-05-26)
PROC: 4A033R1 Measurement of Arterial Saturation, Peripheral, Percutaneous Approach (ICD-10-PCS; 2017-05-26)
PROC: 5A1945Z Respiratory Ventilation, 24-96 Consecutive Hours (ICD-10-PCS; 2017-05-26)
PROC: 0BH17EZ Insertion of Endotracheal Airway into Trachea, Via Natural or Artificial Opening (ICD-10-PCS; 2017-05-26)
DX: A41.9 Sepsis, unspecified organism (principal); J18.9 Pneumonia, unspecified organism; I21.3 ST elevation (STEMI) myocardial infarction of unspecified site; R57.0 Cardiogenic shock; J96.00 Acute respiratory failure, unspecified whether with hypoxia or hypercapnia; I50.23 Acute on chronic systolic (congestive) heart failure; I48.91 Unspecified atrial fibrillation; M10.9 Gout, unspecified; I25.10 Atherosclerotic heart disease of native coronary artery without angina pectoris; I25.5 Ischemic cardiomyopathy; R73.9 Hyperglycemia, unspecified
CPT/HCPCS: 33967; 36415; 36600; 71045; 71275; 80048; 80053; 80061; 80307; 81001; 82140; 82550; 82553; 82803; 82962; 83036; 83735; 84439; 84443; 84484; 85007; 85014; 85018; 85025; 85049; 85520; 85610; 85730; 86850; 86900; 86901; 87040; 93005; 93010; 93458; 94002; 94003; 94640; 96361; 96365; 96366; 96368; 96374; 96375; C1894; J0330; J1265; J1644; J1815; J1940; J1956; J2250; J2405; J2543; J2704; J3010; J3370; J7030; J7040; Q9967